=== PATIENT | female | born 1985 ===

== ENCOUNTER 2021-12-22 06:39 | Day surgery (SDC) | payer OTHER ==
[~2021-12-22] VITALS: Ht 168.9 cm; Wt 81.6 kg
[~2021-12-22 06:39] MED LIST: PROAIR HFA8.5 GM IH
[2021-12-22] MEDS ORDERED: MORGIDOX100 MG PO (11:38)
[2021-12-22] MEDS ORDERED: Tylenol #3 PO (11:38)
== END 2021-12-22 17:50 | disposition home or self-care (01) ==
LOC: CIR.AMB 06:39
PROVIDERS: ATTEND Obstetrics & Gynecology
DX: D25.0 Submucous leiomyoma of uterus (principal); N84.0 Polyp of corpus uteri; N92.5 Other specified irregular menstruation; N89.0 Mild vaginal dysplasia; N81.11 Cystocele, midline; Z20.822 Contact with and (suspected) exposure to COVID-19; Z88.8 Allergy status to other drugs, medicaments and biological substances; Z88.6 Allergy status to analgesic agent; Z88.0 Allergy status to penicillin; Z86.16 Personal history of COVID-19; J45.909 Unspecified asthma, uncomplicated; R42 Dizziness and giddiness